=== PATIENT | male | born 1995 | race Two or more races ===

== ENCOUNTER 2019-02-02 17:19 | Emergency (ER) | payer BC ==
--- NOTE | 2019-02-02 17:42 | ED ---
Respiratory - HPI Summary HPI Summary: This pt is a 23 y/o male presenting to [facility] referred by [facility] for pneumothorax in left lung. Pt reports he has hx of pneumothorax x2. The first time was in the fall of 2015 which he states was severe and required a chest tube. The second time was in October of 2018 but notes it was very small and resolved on its own. He notes he has been "sick" with a cough and a cold for the past 4 days. Pt states he does not know when he began to experience chest pain due to his upper respiratory symptoms. He currently rates his chest pain 3 or 4 out of 10 in severity. Denies SOB. Pt went to [facility] where he had a chest XR that showed 10% pneumothorax in the left lung. PMHx: pneumothorax, asthma, G6PD deficiency. - History of Current Complaint Chief Complaint: EDChestWallPain Stated Complaint: CONGESTION PER PT Time Seen by Provider: 02/02/19 17:38 Hx Obtained From: Patient Onset/Duration: Lasting Days, Still Present Current Severity: Moderate Pain Intensity: 3 - chest pain Aggravating Factor(s): Nothing Alleviating Factor(s): Nothing Associated Signs and Symptoms: Chest Pain, URI Related History: Similar Episode/Dx as - prior pneumothorax - Allergy/Home Medications Allergies/Adverse Reactions: Allergies Allergy/AdvReac Type Severity Reaction Status Date / Time No Known Allergies Allergy Verified 02/02/19 19:14 PMH/Surg Hx/FS Hx/Imm Hx Endocrine/Hematology History: Reports: Other Endocrine/Hematological Disorders - G6PD deficiency Denies: Hx Diabetes Respiratory History: Reports: Hx Asthma, Other Respiratory Problems/Disorders - Pneumothorax - Surgical History Surgical History: Yes Surgery Procedure, Year, and Place: Chest tube for pneumothorax in 2015 Infectious Disease History: No Infectious Disease History: Denies: Traveled Outside the US in Last 30 Days - Family History Known Family History: Negative: Cardiac Disease, Hypertension, Diabetes - Social History Alcohol Use: Occasionally Substance Use Type: Reports: None Smoking Status (MU): Never Smoked Tobacco Review of Systems Negative: Fever, Chills Positive: Chest Pain Positive: Cough. Negative: Shortness Of Breath All Other Systems Reviewed And Are Negative: Yes Physical Exam - Summary Physical Exam Summary: VITAL SIGNS: Reviewed. GENERAL: Patient is a well-developed and nourished male who is lying comfortable in the stretcher. Patient is not in any acute respiratory distress. HEAD AND FACE: No signs of trauma. No ecchymosis, hematomas or skull depressions. No sinus tenderness. EYES: PERRLA, EOMI x 2, No injected conjunctiva, no nystagmus. EARS: Hearing grossly intact. Ear canals and tympanic membranes are within normal limits. MOUTH: Oropharynx within normal limits. NECK: Supple, trachea is midline, no adenopathy, no JVD, no carotid bruit, no c- spine tenderness, neck with full ROM. CHEST: Symmetric, no tenderness at palpation LUNGS: Clear to auscultation bilaterally. No wheezing or crackles. CVS: Regular rate and rhythm, S1 and S2 present, no murmurs or gallops appreciated. ABDOMEN: Soft, non-tender. No signs of distention. No rebound, no guarding, and no masses palpated. Bowel sounds are normal. EXTREMITIES: FROM in all major joints, no edema, no cyanosis or clubbing. NEURO: Alert and oriented x 3. No acute neurological deficits. Speech is normal and follows commands. SKIN: Dry and warm Triage Information Reviewed: Yes Vital Signs On Initial Exam: Initial Vitals Temp Pulse Resp BP Pulse Ox 99.8 F 103 18 150/101 99 02/02/19 17:21 02/02/19 17:21 02/02/19 17:21 02/02/19 17:21 02/02/19 17:21 Vital Signs Reviewed: Yes Diagnostics - Vital Signs Vital Signs Temp Pulse Resp BP Pulse Ox 02/02/19 17:21 99.8 F 103 18 150/101 99 - Laboratory Lab Statement: Any lab studies that have been ordered have been reviewed, and results considered in the medical decision making process. - Radiology CXR Radiology Interpretation Completed By: ED Physician Summary of Radiographic Findings: CXR shows <10% pneumothorax in left lung, not changed from initial CXR, pending official report. Disposition - Course Assessment/Plan: This pt is a 23 y/o male presenting to [facility] referred by [facility] for pneumothorax in left lung. Pt reports he has hx of pneumothorax x2. The first time was in the fall of 2015 which he states was severe and required a chest tube. The second time was in October of 2018 but notes it was very small and resolved on its own. He notes he has been "sick" with a cough and a cold for the past 4 days. Pt states he does not know when he began to experience chest pain due to his upper respiratory symptoms. He currently rates his chest pain 3 or 4 out of 10 in severity. Denies SOB. Pt went to [facility] where he had a chest XR that showed 10% pneumothorax in the left lung. PMHx: pneumothorax, asthma, G6PD deficiency. I discussed the case with Dr. Rascon who requested to repeat the chest x-ray. The chest x-ray shows a small pneumothorax less than 10%, therefore, Dr. Rascon recommends for the patient to be discharged home and follow-up at his office. The patient is hemodynamically stable, has no complaints and he is not hypoxic on room air. Therefore the patient discharged home with follow-up with Dr. Rascon. - Diagnoses Provider Diagnoses: Pneumothorax - Physician Notifications Discussed Care Of Patient With: Lawrence Rascon Time Discussed With Above Provider: 19:17 Instructed by Provider To: Other - Patient's case discussed with Dr. Rascon, Dr. Rascon states to have the patient discharged to home and follow up with him in office tomorrow. Discharge - Sign-Out/Discharge Documenting (check all that apply): Patient Departure - discharge Patient Received Moderate/Deep Sedation with Procedure: No - Discharge Plan Condition: Stable Disposition: HOME Patient Education Materials: Spontaneous Pneumothorax (ED) Referrals: Lawrence Rascon MD [Medical Doctor] - 1 Day Additional Instructions: PLEASE RETURN TO ED FOR ANY NEW OR WORSENING SYMPTOMS. FOLLOW UP WITH DR. RASCON'S OFFICE TOMORROW. - Billing Disposition and Condition Condition: STABLE Disposition: Home - Attestation Statements Document Initiated by Darcieibe: Yes Documenting Scribe: Mallory Brown Provider For Whom Derrick is Documenting (Include Credential): Martin Blood MD Scribe Attestation: Mallory Wagner, scribed for Martin Blood MD on 02/02/19 at [id number]. Scribe Documentation Reviewed: Yes Provider Attestation: The documentation as recorded by the [email or web address], Mallory Brown accurately reflects the service I personally performed and the decisions made by me, Martin Blood MD Status of Scribe Document: Viewed
[2019-02-02 20:11] VITALS: BP 121/95
== END 2019-02-02 20:11 | disposition home or self-care (01) ==
LOC: ED 17:19
DX: J93.83 Other pneumothorax (principal); D55.0 Anemia due to glucose-6-phosphate dehydrogenase [G6PD] deficiency
CPT/HCPCS: 71046; 99282

== ENCOUNTER 2019-02-16 15:38 | Emergency (ER) | payer BC ==
[2019-02-16 15:51] VITALS: BP 154/95
[2019-02-16] MEDS ORDERED: Acetaminophen TAB* 325 MG PO ONE ×2 (15:56→15:58)
--- NOTE | 2019-02-16 16:25 | UC ---
Respiratory Complaint HPI - HPI Summary HPI Summary: 23 yo male presents with productive cough, fever, and sinus pain/pressure/ congestion. He tells me that about 2 weeks ago he had a dry cough and runny nose that resolved after about a week. Over the last 3 days he has had a productive cough and feels mildly short of breath at times. He has felt feverish with sinus pressure and drainage. He has not taken anything OTC for his symptoms. He tells me that he has a history of G6PD, but has never had any symptoms or hemolytic instances with this. Denies sore throat, abdominal pain, n /v/d/c, dysuria, hematuria, or bleeding of gums. - History of Current Complaint Chief Complaint: UCGeneralIllness Stated Complaint: COLD/FLU SYMPTOMS Time Seen by Provider: 02/16/19 15:56 Hx Obtained From: Patient Onset/Duration: Gradual Onset Severity Initially: Mild Severity Currently: Mild Pain Intensity: 4 Pain Scale Used: 0-10 Numeric Character: Cough: Productive - Allergies/Home Medications Allergies/Adverse Reactions: Allergies Allergy/AdvReac Type Severity Reaction Status Date / Time No Known Allergies Allergy Verified 02/16/19 15:52 Home Medications: Home Medications Albuterol HFA INHALER* [Ventolin HFA Inhaler*] 02/16/19 [History] Fluticasone Furoate [Arnuity Ellipta] 100 mcg IH 02/16/19 [History] PMH/Surg Hx/FS Hx/Imm Hx - Additional Past Medical History Additional PMH: G6PD - Surgical History Surgical History: Yes Surgery Procedure, Year, and Place: Chest tube for pneumothorax in 2016 - Family History Known Family History: Negative: Cardiac Disease, Hypertension, Diabetes - Social History Alcohol Use: Occasionally Substance Use Type: None Smoking Status (MU): Never Smoked Tobacco Review of Systems All Other Systems Reviewed And Are Negative: Yes Constitutional: Positive: Fever Skin: Positive: Negative Eyes: Positive: Negative ENT: Positive: Nasal Discharge, Sinus Congestion Respiratory: Positive: Cough Cardiovascular: Positive: Negative Gastrointestinal: Positive: Negative Genitourinary: Positive: Negative Neurovascular: Positive: Negative Neurological: Positive: Negative Psychological: Positive: Negative Physical Exam - Summary Physical Exam Summary: GENERAL: NAD. WDWN. No pain distress. SKIN: No rashes, sores, lesions, or open wounds. HEENT: Head: AT/NC Eyes: EOM intact. Conjunctiva clear without inflammation or discharge. Ears: Hearing grossly normal. TMs intact, no bulging, erythema, or edema. Nose: Nasal mucosa pink and moist. NTTP maxillary and frontal sinus. Throat: Posterior oropharynx without exudates, erythema, or tonsillar enlargement. Uvula midline. NECK: Supple. Nontender. No lymphadenopathy. CHEST: Decreased breath sounds throughout. No accessory muscle use. Breathing comfortably and in no distress. CV: RRR. Without m/r/g. Pulses intact. Cap refill <2seconds ABDOMEN: Soft. NTTP. No distention or guarding. No CVA tenderness. Bowel sounds present NEURO: Alert. PSYCH: Age appropriate behavior. Triage Information Reviewed: Yes Vital Signs: Initial Vital Signs Temp 102.5 F 02/16/19 15:47 Pulse 125 02/16/19 15:47 Resp 18 02/16/19 15:47 BP 154/95 02/16/19 15:47 Pulse Ox 99 02/16/19 15:47 Vital Signs Reviewed: Yes Respiratory Course/Dx - Course Course Of Treatment: CXR: IMPRESSION: THERE HAS BEEN INTERVAL INCREASE IN THE SMALL LEFT-SIDED PNEUMOTHORAX RELATIVE TO THE FEBRUARY 02, 2019 CHEST X-RAY. FINDINGS WERE REPORTED TO CHARANJIT BARRERA OVER THE TELEPHONE AT 1630 HOURS ON FEBRUARY 16, 2019. UA with 1+ bili, 3+ blood, and 2+ protein. He was given 650mg tylenol for his fever. Discussed results with pt. At this time, I am most concerned for a hemolytic event given his G6PD without another obvious source of infection. I recommended that he go to the ED for further evaluation - he was agreeable to this and will drive himself. - Differential Dx/Diagnosis Provider Diagnosis: G6PD deficiency, Fever, Hematuria, Pneumothorax Discharge - Sign-Out/Discharge Documenting (check all that apply): Patient Departure All imaging exams completed and their final reports reviewed: Yes - Discharge Plan Condition: Stable Disposition: HOME-RECOMMEND TO ED Referrals: No Primary Care Phys,NOPCP [Primary Care Provider] - Additional Instructions: Please go to the ER for further evaluation of your fever, pneumothorax, and bleeding - Billing Disposition and Condition Condition: STABLE Disposition: Home-Recommend to ED - Attestation Statements Provider Attestation: I was available for consult. This patient was seen by the K[facility]. The patient was not presented to, seen by, or examined by me. -Sandy
== END 2019-02-16 16:53 | disposition home health service (06) ==
LOC: UCEAST 15:38
DX: E74.01 von Gierke disease (principal); J93.9 Pneumothorax, unspecified; R31.9 Hematuria, unspecified
CPT/HCPCS: 71046; 81002; 99212; A9270-GY; G0463

== ENCOUNTER 2019-02-16 17:30 | Emergency (ER) | payer BC ==
[2019-02-16 19:07] LABS: Activated Partial Thrombo Time 44.7 seconds (26.0-38.0); INR 1.09 (0.82-1.09)
[2019-02-16 19:16] LABS: ALT 13 U/L (7-52); Albumin 4.9 g/dL (3.2-5.2); Albumin/Globulin Ratio 1.8 (1-3); Alkaline Phosphatase 77 U/L (34-104); BUN/Creatinine Ratio 21.3 (8-20); Blood Urea Nitrogen 16 mg/dL (6-24); CO2 Carbon Dioxide 28 mmol/L (22-32); Calcium 9.5 mg/dL (8.6-10.3); Chloride 99 mmol/L (101-111); EGFR African American 156.2 (>60); EGFR Non-African American 129.1 (>60); Globulin 2.8 g/dL (2-4); Glucose 100 mg/dL (70-100); Sodium 137 mmol/L (135-145); Total Protein 7.7 g/dL (6.4-8.9)
[2019-02-16 19:21] LABS: Hematocrit 36 % (42-52); Hemoglobin 10.2 g/dL (14.0-18.0); Mean Corpuscular HGB Conc 29 g/dL (31-36); Mean Corpuscular Hemoglobin 20 pg (27-31); Mean Corpuscular Volume 68 fL (80-94); Red Blood Count 5.21 10^6 /uL (4.18-5.48); Red Cell Distribution Width 21 % (10-15)
[2019-02-16 19:36] LABS: Anion Gap 10 mmol/L (2-11)
[2019-02-16 19:58] LABS: Mean Platelet Volume 10.4 fL (7.4-10.4); Platelet Count 247 10^3/uL (150-450)
[2019-02-16 20:01] LABS: Microcytosis 2+; Polychromasia 2+
[2019-02-16 20:03] LABS: ABS Basophils 0.1 10^3/ul (0-0.2); ABS Lymphocytes 2.1 10^3/ul (1.0-4.8); ABS Monocytes 1.6 10^3/ul (0-0.8); ABS Neutrophils 7.2 10^3/ul (1.5-7.7); Eosinophil % 0.2 %; Nucleated Red Blood Cells % 0.1
[2019-02-16 20:10] LABS: Potassium Redraw 4.3 mmol/L (3.5-5.0)
[2019-02-16] MEDS ORDERED: Ibuprofen TAB* 600 MG PO ONE (22:08)
[2019-02-17] MEDS ORDERED: Azithromycin TAB* 250 MG PO ONE ×2 (01:24→01:25)
--- NOTE | 2019-02-17 01:26 | ED ---
Influenza-Like Illness - HPI Summary HPI Summary: Patient complains of sinus pressure and congestion, productive cough, fever up to 101, body aches 5 days. Patient was seen at urgent care and sent to the ED for further evaluation due to history of G6PD and history of pneumothorax per x- ray on 02/02. Patient states he was evaluated on 02/02 due to similar respiratory symptoms that self resolved. Patient denies WAITE, ear pain, sore throat, CP, SOB, N/V/D, abdominal pain, change in urine, change in BM. Medical history is G6PD, asthma, anemia, pneumothorax. Patient states this is his fourth pneumothorax. Patient states he is currently in the process of arranging a pleurodesis back and 4 over he lives. Patient has been in [place] for the past month and consulted thoracic surgery and pulmonology there regarding pneumothorax. Patient states medical plan was watchful waiting until patient return to [place]. Patient states he is chronically anemic, and has chronically elevated bilirubin. - History of Current Complaint Chief Complaint: EDUpperRespComplaint Time Seen by Provider: 02/16/19 21:33 Hx Obtained From: Patient Onset/Duration: Gradual Onset, Lasting Days Severity: Moderate Associated Signs & Symptoms: Fever, Myalgia, Cough, Nasal Congestion - Allergy/Home Medications Allergies/Adverse Reactions: Allergies Allergy/AdvReac Type Severity Reaction Status Date / Time No Known Allergies Allergy Verified 02/16/19 15:52 PMH/Surg Hx/FS Hx/Imm Hx Endocrine/Hematology History: Reports: Other Endocrine/Hematological Disorders - G6PD deficiency Denies: Hx Diabetes, Hx Thyroid Disease Cardiovascular History: Denies: Hx Hypertension Respiratory History: Reports: Hx Asthma, Other Respiratory Problems/Disorders - Pneumothorax Denies: Hx Chronic Obstructive Pulmonary Disease (COPD) GI History: Denies: Hx Ulcer History: Denies: Hx Dialysis Sensory History: Denies: Hx Legally Blind Opthamlomology History: Denies: Hx Eye Prosthesis EENT History: Denies: Hx Deafness Neurological History: Denies: Hx Dementia - Surgical History Surgery Procedure, Year, and Place: Chest tube for pneumothorax in 2016 - Immunization History Immunizations Up to Date: Yes Infectious Disease History: No Infectious Disease History: Denies: Hx Hepatitis, Hx Human Immunodeficiency Virus (HIV), Traveled Outside the US in Last 30 Days - Family History Known Family History: Negative: Cardiac Disease, Hypertension, Diabetes - Social History Alcohol Use: Occasionally Substance Use Type: Reports: None Smoking Status (MU): Never Smoked Tobacco Review of Systems Positive: Fever Eyes: Negative ENT: Negative Cardiovascular: Negative Positive: Cough Gastrointestinal: Negative Genitourinary: Negative Musculoskeletal: Negative Skin: Negative Neurological: Negative Psychological: Normal All Other Systems Reviewed And Are Negative: Yes Physical Exam - Summary Physical Exam Summary: Lung sounds clear to auscultation bilaterally. Abdomen soft nontender. ENT exam unremarkable. Triage Information Reviewed: Yes Vital Signs On Initial Exam: Initial Vitals Temp Pulse Resp BP Pulse Ox 99.6 F 120 16 141/102 96 02/16/19 17:59 02/16/19 17:59 02/16/19 17:59 02/16/19 17:59 02/16/19 17:59 Vital Signs Reviewed: Yes Appearance: Positive: Well-Appearing Skin: Positive: Warm Head/Face: Positive: Normal Head/Face Inspection Eyes: Positive: Normal ENT: Positive: Normal ENT inspection Neck: Positive: Supple Respiratory/Lung Sounds: Positive: Clear to Auscultation Cardiovascular: Positive: Normal Abdomen Description: Positive: Nontender Musculoskeletal: Positive: Normal Neurological: Positive: Normal Psychiatric: Positive: Normal AVPU Assessment: Alert - Moriah Coma Scale Best Eye Response: 4 - Spontaneous Best Motor Response: 6 - Obeys Commands Best Verbal Response: 5 - Oriented Coma Scale Total: 15 Diagnostics - Vital Signs Vital Signs Temp Pulse Resp BP Pulse Ox 02/16/19 23:00 97 02/16/19 22:48 96 128/85 97 02/16/19 22:18 98 132/95 97 02/16/19 22:00 98 96 02/16/19 21:49 99 96 02/16/19 21:48 103 138/92 98 02/16/19 19:53 100 F 116 18 134/94 98 02/16/19 17:59 99.6 F 120 16 141/102 96 - Laboratory Lab Results: Lab Results 02/16/19 02/16/19 02/16/19 Range/Units 18:47 18:47 18:47 WBC 11.0 H (3.5-10.8) 10^3/uL RBC 5.21 (4.18-5.48) 10^6 /uL Hgb 10.2 L (14.0-18.0) g/dL Hct 36 L (42-52) % MCV 68 L (80-94) fL MCH 20 L (27-31) pg MCHC 29 L (31-36) g/dL RDW 21 H (10-15) % Plt Count 247 (150-450) 10^3/uL MPV 10.4 (7.4-10.4) fL Neut % (Auto) 65.7 % Lymph % (Auto) 19.0 % [place] % (Auto) 14.2 % Eos % (Auto) 0.2 % Baso % (Auto) 0.9 % Absolute Neuts (auto) 7.2 (1.5-7.7) 10^3/ul Absolute Lymphs (auto) 2.1 (1.0-4.8) 10^3/ul Absolute Monos (auto) 1.6 H (0-0.8) 10^3/ul Absolute Eos (auto) 0.0 (0-0.6) 10^3/ul Absolute Basos (auto) 0.1 (0-0.2) 10^3/ul Absolute Nucleated RBC 0.0 10^3/ul Nucleated RBC % 0.1 Polychromasia 2+ Hypochromasia 3+ Basophilic Stippling 1+ Anisocytosis 2+ Microcytosis 2+ Target Cells 3+ Hem Pathologist Commnt Pending INR (Anticoag Therapy) 1.09 (0.82-1.09) APTT 44.7 H (26.0-38.0) seconds Sodium 137 (135-145) mmol/L Potassium TNP Chloride 99 L (101-111) mmol/L Carbon Dioxide 28 (22-32) mmol/L Anion Gap 10 (2-11) mmol/L BUN 16 (6-24) mg/dL Creatinine 0.75 (0.67-1.17) mg/dL Est GFR ( Amer) 156.2 (>60) Est GFR (Non-Af Amer) 129.1 (>60) BUN/Creatinine Ratio 21.3 H (8-20) Glucose 100 (70-100) mg/dL Lactic Acid (0.5-2.0) mmol/L Calcium 9.5 (8.6-10.3) mg/dL Total Bilirubin 5.70 H (0.2-1.0) mg/dL AST TNP ALT 13 (7-52) U/L Alkaline Phosphatase 77 (34-104) U/L Total Protein 7.7 (6.4-8.9) g/dL Albumin 4.9 (3.2-5.2) g/dL Globulin 2.8 (2-4) g/dL Albumin/Globulin Ratio 1.8 (1-3) 02/16/19 02/16/19 Range/Units 18:48 19:44 WBC (3.5-10.8) 10^3/uL RBC (4.18-5.48) 10^6 /uL Hgb (14.0-18.0) g/dL Hct (42-52) % MCV (80-94) fL MCH (27-31) pg MCHC (31-36) g/dL RDW (10-15) % Plt Count (150-450) 10^3/uL MPV (7.4-10.4) fL Neut % (Auto) % Lymph % (Auto) % [place] % (Auto) % Eos % (Auto) % Baso % (Auto) % Absolute Neuts (auto) (1.5-7.7) 10^3/ul Absolute Lymphs (auto) (1.0-4.8) 10^3/ul Absolute Monos (auto) (0-0.8) 10^3/ul Absolute Eos (auto) (0-0.6) 10^3/ul Absolute Basos (auto) (0-0.2) 10^3/ul Absolute Nucleated RBC 10^3/ul Nucleated RBC % Polychromasia Hypochromasia Basophilic Stippling Anisocytosis Microcytosis Target Cells Hem Pathologist Commnt INR (Anticoag Therapy) (0.82-1.09) APTT (26.0-38.0) seconds Sodium (135-145) mmol/L Potassium 4.3 Chloride (101-111) mmol/L Carbon Dioxide (22-32) mmol/L Anion Gap (2-11) mmol/L BUN (6-24) mg/dL Creatinine (0.67-1.17) mg/dL Est GFR ( Amer) (>60) Est GFR (Non-Af Amer) (>60) BUN/Creatinine Ratio (8-20) Glucose (70-100) mg/dL Lactic Acid 1.7 (0.5-2.0) mmol/L Calcium (8.6-10.3) mg/dL Total Bilirubin (0.2-1.0) mg/dL AST 52 H ALT (7-52) U/L Alkaline Phosphatase (34-104) U/L Total Protein (6.4-8.9) g/dL Albumin (3.2-5.2) g/dL Globulin (2-4) g/dL Albumin/Globulin Ratio (1-3) Result Diagrams: 02/16/19 18:47 02/16/19 19:44 Lab Statement: Any lab studies that have been ordered have been reviewed, and results considered in the medical decision making process. Flu Symptom Course/Dx - Course Course Of Treatment: Patient complains of sinus pressure and congestion, productive cough, fever up to 101, body aches 5 days. Patient was seen at urgent care and sent to the ED for further evaluation due to history of G6PD and history of pneumothorax per x-ray on 02/02. Patient states he was evaluated on 02/02 due to similar respiratory symptoms that self resolved. Patient denies WAITE, ear pain, sore throat, CP, SOB, N/V/D, abdominal pain, change in urine, change in BM. Medical history is G6PD, asthma, anemia, pneumothorax. Patient states this is his fourth pneumothorax. Patient states he is currently in the process of arranging a pleurodesis back and 4 over he lives. Patient has been in [place] for the past month and consulted thoracic surgery and pulmonology there regarding pneumothorax. Patient states medical plan was watchful waiting until patient return to [place]. Patient states he is chronically anemic, and has chronically elevated bilirubin. Patient initially tachycardic with a temperature 100. Both self resolved. Vital signs otherwise within normal limits. Hgb 10.2. Bilirubin 5.7. Patient states these are consistent with his baseline. Patient appears very informed about his condition. Also familiar with pneumothorax. Per x-ray today pneumothorax is increased from x- ray on 02/02. X-ray evaluated by attending Dr. Florentino who recommended consulting with [facility] surgery and possible transfer up [facility] to [place]. Patient refused admission to [facility] or transfer to [facility], stating he wanted to have pleurodesis performed in [place] where he could be with his family. Patient was advised repeatedly of the risks of tension pneumothorax, the patient persisted in signing AMA. Patient was already cognizant of the dangers of pneumothorax as he has had pneumothorax 3 times before. Patient advised to return to the ED for any concerning symptoms, to have a low threshold for returning to the ED. Patient agreed. Patient signed out AMA. - Diagnoses Provider Diagnoses: Respiratory infection, Pneumothorax Discharge - Sign-Out/Discharge Documenting (check all that apply): Patient Departure Patient Received Moderate/Deep Sedation with Procedure: No - Discharge Plan Condition: Stable Disposition: AGAINST MEDICAL ADVICE Prescriptions: Azithromycin 250 mg PO DAILY 4 Days #4 tablet Patient Education Materials: Spontaneous Pneumothorax (ED), Upper Respiratory Infection (ED) Referrals: No Primary Care Phys,NOPCP [Primary Care Provider] - Additional Instructions: Take antibiotics as directed. Return to the ED for any new or worsening symptoms. - Billing Disposition and Condition Condition: STABLE Disposition: Against Medical Advice
[2019-02-17 01:43] VITALS: BP 133/96
== END 2019-02-17 01:42 | disposition left against medical advice (07) ==
LOC: ED 17:30
DX: J98.8 Other specified respiratory disorders (principal); J93.9 Pneumothorax, unspecified
CPT/HCPCS: 36415; 80053; 83605; 85025; 85060; 85610; 85730; 99283; A9270-GY